=== PATIENT | female | born 1995 | race Two or more races ===

== ENCOUNTER 2017-01-22 12:25 | Emergency (ER) | payer OTHER ==
[2017-01-22 12:45] VITALS: TEMP 98.3; BMI 32.1
[2017-01-22] MEDS ORDERED: LORATADINE 10 MG TABLET PO ONE (15:15)
[2017-01-22] MEDS ORDERED: ALBUTEROL SO4 0.083% IH SOL 2.5 MG/3 ML VIAL.NEB. NEB ONE ×3 (15:15→15:45)
[2017-01-22] MEDS ORDERED: ACETAMINOPHEN 325 MG TABLET (FP) PO ONE (15:16)
--- NOTE | 2017-01-22 15:28 | PDOC ---
History of Present Illness - History of Present Illness Initial Comments: 01/22/17 15:46 Patient is a 22 year old female (18 weeks) with significant medical hx of seasonal allergies who is presenting to the ED with three days of chest tightness and congestion. The patient reports shes been having an exacerbation of her seasonal allergies and that shes had to use her albuterol pump for the past several days. Patient endorses some chest tightness, congestion and wheezing that worsens when shes outside. The patient also complains of difficulty sleeping the past three nights. Denies fevers, chills, cough, shortness of breath, weakness, lightheadedness, vaginal bleeding or discharge. <Suki Covington - Last Filed: 01/22/17 15:46> - General History Source: Patient Exam Limitations: No Limitations <Wiley Almanzar - Last Filed: 01/22/17 16:39> - General Chief Complaint: Respiratory Stated Complaint: COLD, SOB (18 WKS ) Time Seen by Provider: 01/22/17 15:07 Past History <Suki Covington - Last Filed: 01/22/17 15:46> - Past Medical History Asthma: Yes Thyroid Disease: Yes (HYPO) Other medical history: ECZEMA - Immunization History Immunization Up to Date: Yes - Psycho/Social/Smoking Cessation Hx Anxiety: No Suicidal Ideation: No Smoking History: Never smoked Have you smoked in the past 12 months: No Number of Cigarettes Smoked Daily: 0 Cigars Per Day: 0 Hx Alcohol Use: No Drug/Substance Use Hx: No Substance Use Type: None <Wiley Almanzar - Last Filed: 01/22/17 16:39> - Past Medical History Allergies/Adverse Reactions: Allergies Allergy/AdvReac Type Severity Reaction Status Date / Time [place] And Derivatives Allergy Verified 01/22/17 12:45 peanut Allergy Verified 01/22/17 12:45 KETCHUP Allergy Uncoded 01/22/17 12:45 Home Medications: Ambulatory Orders Acetaminophen [Tylenol] 650 mg PO Q4H PRN #20 tablet 01/22/17 Albuterol Sulfate Inhaler - [Ventolin HFA Inhaler -] 1 - 2 inh PO Q4H PRN #1 inhaler 01/22/17 Diphenhydramine HCl [Benadryl -] 25 mg PO Q6H PRN #20 capsule 01/22/17 Loratadine [Claritin] 10 mg PO DAILY PRN #10 tablet 01/22/17 Review of Systems - Review of Systems Comments:: 01/22/17 15:47 GENERAL/CONSTITUTIONAL: Difficulty sleeping. No fever or chills. No weakness. HEAD, EYES, EARS, NOSE AND THROAT: Congestion. No change in vision. No ear pain or discharge. No sore throat. CARDIOVASCULAR: Chest tightness. No shortness of breath. RESPIRATORY: Wheezing. No cough, or hemoptysis. GASTROINTESTINAL: No nausea, vomiting, diarrhea or constipation. GENITOURINARY: No dysuria, frequency, or change in urination. MUSCULOSKELETAL: No joint or muscle swelling or pain. No neck or back pain. SKIN: No rash NEUROLOGIC: No headache, vertigo, loss of consciousness, or change in strength/ sensation. <Suki Covington - Last Filed: 01/22/17 15:46> *Physical Exam - Vital Signs Last Vital Signs Temp Pulse Resp BP Pulse Ox 98.3 F 113 H 18 128/68 93 L 01/22/17 12:42 01/22/17 12:42 01/22/17 12:42 01/22/17 12:42 01/22/17 12:42 - Physical Exam Comments: 01/22/17 15:48 GENERAL: Awake, alert, and fully oriented, in no acute distress HEAD: No signs of trauma EYES: PERRLA, EOMI, sclera anicteric, conjunctiva clear ENT: Auricles normal inspection, hearing grossly normal, nares patent, oropharynx clear without exudates. Moist mucosa NECK: Normal ROM, supple, no lymphadenopathy, JVD, or masses LUNGS: Breath sounds equal, clear to auscultation bilaterally. No wheezes, and no crackles HEART: Regular rate and rhythm, normal S1 and S2, no murmurs, rubs or gallops ABDOMEN: Soft, nontender, normoactive bowel sounds. No guarding, no rebound. No masses EXTREMITIES: Normal range of motion, no edema. No clubbing or cyanosis. No cords, erythema, or tenderness NEUROLOGICAL: Cranial nerves II through XII grossly intact. Normal speech, normal gait SKIN: Warm, Dry, normal turgor, no rashes or lesions noted. ENDOCRINE: No increased thirst. No abnormal weight change. HEMATOLOGIC/LYMPHATIC: No anemia, easy bleeding, or history of blood clots. ALLERGIC/IMMUNOLOGIC: No hives or skin allergy. <Suki Covington - Last Filed: 01/22/17 15:46> - Vital Signs Last Vital Signs Temp Pulse Resp BP Pulse Ox 98.3 F 113 H 18 128/68 93 L 01/22/17 12:42 01/22/17 12:42 01/22/17 12:42 01/22/17 12:42 01/22/17 12:42 <Wiley Almanzar - Last Filed: 01/22/17 16:39> Medical Decision Making - Medical Decision Making 01/22/17 16:29 A portion of this note was documented by scribe services under my direction. I have reviewed the details of the note, within reason, and agree with the documentation with the following case summary and management plan written by me. Patient treated in the ED. Nursing notes are reviewed and incorporated into the medical decision-making. Vital signs reviewed. Peripheral IV access obtained by the nurse, laboratory studies are drawn and sent, reviewed and interpreted by myself. Vital Signs Temp Pulse Resp BP Pulse Ox 98.3 F 113 H 18 128/68 93 L 01/22/17 12:42 01/22/17 12:42 01/22/17 12:42 01/22/17 12:42 01/22/17 12:42 22-year-old female with past medical history of hypothyroidism, asthma, approximately 18 weeks presents with ALLERGIES. Last several days, the patient has been having seasonal ALLERGIES and wheezing. She's been using her albuterol pump with some relief. Of her, the symptoms are persistent and the patient was not sure what to take to her and came to the ED for further evaluation. The patient denies any abdominal pain or vaginal bleeding. The patient is having seasonal ALLERGIES. Albuterol was given with improvement of symptoms. Will give Claritin as well. At this time, we have decided against steroids. Return precautions given. Patient is ambulatory without difficulty breathing. I discussed the physical exam findings, ancillary test results and final diagnoses with the patient. I answered all of the patient's questions. The patient was satisfied with the care received and felt comfortable with the discharge plan and treatment plan. The patient will call their primary care physician within 24 hours to arrange follow-up and will return to the Emergency Department with any new, persistant or worsening symptoms. <Wiley Almanzar - Last Filed: 01/22/17 16:39> *DC/Admit/Observation/Transfer - Attestations Scribe Attestion: 01/22/17 15:49 Documentation prepared by Suki Covington, acting as medical billing coordinator for Wiley Almanzar MD. <Suki Covington - Last Filed: 01/22/17 15:46> - Discharge Dispostion Admit: No <Wiley Almanzar - Last Filed: 01/22/17 16:39> Diagnosis at time of Disposition: Seasonal allergies Qualifiers: Allergic rhinitis trigger: pollen Qualified Code(s): J30.1 - Allergic rhinitis due to pollen - Discharge Dispostion Disposition: HOME Condition at time of disposition: Improved - Prescriptions Prescriptions: Diphenhydramine HCl [Benadryl -] 25 mg PO Q6H PRN #20 capsule PRN Reason: Allergies Loratadine [Claritin] 10 mg PO DAILY PRN #10 tablet PRN Reason: Allergies Acetaminophen [Tylenol] 650 mg PO Q4H PRN #20 tablet PRN Reason: Pain Albuterol Sulfate Inhaler - [Ventolin HFA Inhaler -] 1 - 2 inh PO Q4H PRN #1 inhaler PRN Reason: Wheezing - Referrals Referrals: Lewis Jade [Primary Care Provider] - - Patient Instructions Printed Discharge Instructions: Allergic Rhinitis, Allergies, Respiratory ( Alternative Therapy) Additional Instructions: Please use the medications as needed for symptom control. It will take several days before your symptoms improve. - Post Discharge Activity Work/School Note: Back to Work
[2017-01-22] MEDS ORDERED: ACETAMINOPHEN 325 MG TABLET (FP) ONE (15:45)
[2017-01-22] MEDS ORDERED: LORATADINE 10 MG TABLET ONE (15:45)
[2017-01-22 17:04] VITALS: BP 118/64; PULSE 98
== END 2017-01-22 17:03 | disposition home or self-care (01) ==
LOC: JER 12:25
PROC: 3E0F7GC Introduction of Other Therapeutic Substance into Respiratory Tract, Via Natural or Artificial Opening (ICD-10-PCS; principal; 2017-01-22)
DX: O26.892 Other specified pregnancy related conditions, second trimester (principal); Z3A.18 18 weeks gestation of pregnancy; J30.1 Allergic rhinitis due to pollen
CPT/HCPCS: 94640; 99281-25

== ENCOUNTER 2017-05-26 17:05 | Inpatient (IN) | payer OTHER ==
[2017-05-26] MEDS ORDERED: DINOPROSTONE 10 MG VAGINAL SUPPOSITORY VG ONE (18:48)
[2017-05-26] MEDS ORDERED: BETAMET ACET/BETAMET NA PH 30 MG/5 ML VIAL IM ONE (18:49)
[2017-05-26 18:50] VITALS: BMI 34.6
[2017-05-26] MEDS: LACTATED RINGERS SOLUTION 1,000 ML IV SCH (19:30)
[2017-05-26 19:35] LABS: BASOPHIL 0.2 % (0-2.0); MCH 29.5 pg (25.7-33.7); MCHC 33.9 g/dl (32.0-36.0); MEAN PLT VOLUME 10.1 fl (7.5-11.1); NEUTROPHILS 72.5 % (42.8-82.8); PLATELET COUNT 191 K/MM3 (134-434); RDW 13.1 % (11.6-15.6); WHITE BLOOD COUNT 12.4 K/mm3 (4.0-10.0)
[2017-05-26 19:42] LABS: ACTIVATED PTT 26.4 SECONDS (26.9-34.4)
[2017-05-26] MEDS ORDERED: TUBERCULIN PPD 5 TU/0.1ML SYRINGE (IN PATIENT USE ONLY) ID ONE (19:45)
[2017-05-26 20:09] LABS: ANION GAP 10 (8-16); CO2 21 mmol/L (21-32); CREATININE 0.4 mg/dL (0.55-1.02); GLUCOSE,RANDOM 83 mg/dL (74-106)
--- NOTE | 2017-05-26 21:38 | HP ---
Past Medical History - Admission History of Present Illness: 22 yo @ 35 5/7 wks by first trimester ultrasound, EDC 06/12/2017 complicated by: 1. Hypohthyroid - on synthroid 50 mcg daily; Dr. Keita last TSH (05/19) 0.36 2. Asthma 3. CF carrier - referral given for FOB to get testing planned 02/12/17 4. Short cervix - noted at 30 wk ultrasound 5. 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 Suspected IUGR, s/p sequential screening (low risk) s/p diagnostic amniocentesis with normal karyotype (46,XX) 05/26/17 - 2090 (4 %) 05/12/17 - 1848 (7 %) 04/21/17 - 1364 (8 %) 03/24/17 - 844 (10 %) 03/01/17 - 531 (19 %) 02/17/17 - 377 (10 %) 7. Hx/o travel to region with [place] travel advisory at time of conception, Negative testing Patient was seen today for growth monitoring for suspected IUGR. She was noted to have an EFW of 4%, normal Umbilical artery dopplers. Recommendation per MFM is for delivery. She reports movement, denies leakage of fluid, vaginal bleeding or contractions. History Source: Patient Limitations to Obtaining History: No Limitations - Past Medical History Cardiovascular: No: HTN Pulmonary: Yes: Asthma Gastrointestinal: Yes: GERD ...: 1 ...Para: 0 ...Term: 0 ...: 0 ...Spon : 0 ...Induced : 0 ...Multiple Gestation: 0 ...LMP: 09/05/16 ... Weeks Gestation by Dates: 37.4 ...EDC by Dates: 06/12/17 ...EDC by Sono: 06/25/17 Heme/Onc: Yes: Anemia - Past Surgical History Past Surgical History: Yes: None Hx Myomectomy: No Hx Transabdominal Cerclage: No - Smoking History Smoking history: Never smoked Have you smoked in the past 12 months: No Aproximately how many cigarettes per day: 0 - Alcohol/Substance Use Hx Alcohol Use: No History of Substance Use: reports: None - Social History History of Recent Travel: No Home Medications - Allergies Allergies/Adverse Reactions: Allergies Allergy/AdvReac Type Severity Reaction Status Date / Time [place] And Derivatives Allergy Mild Verified 05/26/17 18:58 peanut Allergy Unknown Verified 05/26/17 18:58 KETCH[place] Allergy Mild Uncoded 05/26/17 18:58 - Home Medications Home Medications: Ambulatory Orders Levothyroxine [Synthroid -] 50 mcg PO DAILY 04/29/17 [id number]/Iron Fumarate/FA/Dss [ 19 Tablet] 1 each PO DAILY 04/29/17 Family Disease History - Family Disease History Family History: Denies Review of Systems - Review of Systems Constitutional: reports: No Symptoms Neck: reports: No Symptoms Cardiovascular: reports: No Symptoms Gastrointestinal: reports: No Symptoms Genitourinary: reports: No Symptoms Breasts: reports: No Symptoms Reported Integumentary: reports: No Symptoms Neurological: reports: No Symptoms Endocrine: reports: No Symptoms Hematology/Lymphatic: reports: No Symptoms Psychiatric: reports: No Symptoms Physical Exam - Maternity Vital Signs: Vital Signs Temperature 97.8 F 05/26/17 17:05 Pulse Rate 93 H 05/26/17 17:05 Respiratory Rate 20 05/26/17 17:05 Blood Pressure 122/55 05/26/17 17:05 O2 Sat by Pulse Oximetry (%) Constitutional: Yes: Well Nourished, No Distress, Calm Neck: Yes: Supple Cardiovascular: Yes: Regular Rate and Rhythm Lungs: Clear to auscultation - Abdominal Exam/OB Number of Fetuses: Single Presentation: Vertex Contractions: No Category: I Accelerations: Non-Uniform Decelerations: None - Vaginal Exam/OB Vaginal Bleediing: No Dilatation (cm): 1 Effacement (%): 50 Amniotic Membrane Status: Intact Station: -3 - Physical Exam Psychiatric: Yes: Alert, Oriented - Labs Lab Results: CBC, BMP 05/26/17 18:40 05/26/17 18:40 PNL - B positive, antibody negative, RPR NR, HBsAg negative, Hep C negative; Varicella immune; Rubella immune, Hg Terrie AA; GBS negative, HIV negative, Hemorrhage Risk Assessment - Risk Factors Medium Risk Factors: Yes: None High Risk Factors: Yes: None Risk Score: 1 Risk Level: Medium Risk Assessment/Plan 22 yo @ 35 5/7 wks IUGR for IOL 1. Admit to L&D 2. Consents reviewed and signed. Reviewed risks of induction of labor including uterine tachysystole, heart rate changes, failure, need for emergent delivery. Patient expressed understanding and cervidil placed in posterior fornix 3. GBS negative 4. Will offer pain medication upon request 5. Will continue synthroid for hypothyroidism 6. Will continue expectant management
[2017-05-26 21:44] LABS: CALCIUM 8.8 mg/dL (8.5-10.1)
[2017-05-27] MEDS: LACTATED RINGERS SOLUTION 1,000 ML IV SCH (02:30)
[2017-05-27] MEDS: LEVOTHYROXINE NA 50 MCG TABLET (FP) PO SCH (06:40)
[2017-05-27] MEDS ORDERED: BUTORPHANOL TARTRATE 1 MG/ML VIAL IVPUSH ONE (09:59)
[2017-05-27] MEDS ORDERED: PROMETHAZINE HCL 25 MG/1 ML VIAL IVPUSH ONE ×2 (09:59→21:36)
[2017-05-27] MEDS ORDERED: BETAMET ACET/BETAMET NA PH 30 MG/5 ML VIAL IM ONE (09:59)
--- NOTE | 2017-05-27 10:37 | PN ---
Ante-Partal Exam - Subjective Subjective: Mild cramping s/p cervidil Vital Signs: Vital Signs Temperature 97.5 F L 05/27/17 08:00 Pulse Rate 69 05/27/17 09:36 Respiratory Rate 20 05/27/17 09:36 Blood Pressure 121/66 05/27/17 09:36 O2 Sat by Pulse Oximetry (%) Bleeding: No Headache: No Visual changes: No Right upper quadrant pain: No - Contractions Contractions: Yes Regularity: Irregular Intensity: Mild Monitor Mode: External - Exam during Labor Heart Rate: 140 Variability: Moderate Category: I Monitor Accelerations: Present Monitor Decelerations: None Exam: Vaginal Dilatation (cm): 1 Effacement (%): 50 Amniotic Membrane Status: Intact Presentation: Vertex Station: -3 - Intrapartum Hemorrhage Risk Medium Risk Factors: None High Risk Factors: None Risk Score: 0 Risk Level: Low Risk - Assessment/Plan Assessment/Plan: 22 yo IOL IUGR 35 wk 1. Will start pitocin per protocol 2. GBS negative, no need for antibiotic prophylaxis 3. Category I FHT 4. Will offer IV medication for pain control 5. Will continue expectant management
[2017-05-27] MEDS: OXYTOCIN 15 UNITS/ LR 250 ML 250 ML IVPB SCH (10:40)
[2017-05-27] MEDS ORDERED: OXYTOCIN 15 UNITS/ LR 250 ML 250 ML IVPB SCH (11:28)
--- NOTE | 2017-05-27 17:43 | PN ---
Progress Note (short form) - Note Progress Note: cx 1 cm 80 vx -3 mi, fhr cat 1, contraction q 3 min
[2017-05-27] MEDS ORDERED: BUTORPHANOL TARTRATE 1 MG/ML VIAL IVPUSH PRN (21:36)
[2017-05-28] MEDS ORDERED: AMPICILLIN 2 GM/100 ML BAG (PRE-DOCKED) IVPB ONE (03:00)
--- NOTE | 2017-05-28 03:57 | PN ---
Progress Note (short form) - Note Progress Note: had SROM at am , clear fluid , cx 3 cm 80 vx -2 fhr cat 1, pt moving a lot with pain and contraction, scalp electrode applied
[2017-05-28] MEDS ORDERED: ELECTROLYTE-148 SOLN 500 ML IV ONE (04:00)
[2017-05-28] MEDS ORDERED: ELECTROLYTE-148 SOLN 1,000 ML IV SCH (04:00)
[2017-05-28] MEDS: FENTANYL/BUPIVACAINE/NS/PF - PCEA - 50 ML DISP.SYRIN EP SCH (05:00)
[2017-05-28] MEDS: AMPICILLIN (PRE-DOCKED) 1 GM/100 ML BAG IVPB SCH ×2 (06:49→10:15)
--- NOTE | 2017-05-28 09:02 | PN ---
Progress Note (short form) - Note Progress Note: cx 8 cm, 100 vx 0 . mr, clear. fhr cat 2 wirh variable decel with contraction, good BTBV . good recovery , plan LT side o2 , cont monitor heart
[2017-05-28] MEDS ORDERED: LEVOTHYROXINE NA 50 MCG TABLET (FP) PO SCH (10:00)
[2017-05-28] MEDS: OXYTOCIN 15 UNITS/ LR 250 ML 250 ML IVPB SCH (11:16)
[2017-05-28] MEDS ORDERED: BENZOCAINE 28 GM HEMORRHOIDAL OINTMENT TP PRN (11:26)
[2017-05-28] MEDS ORDERED: METHYLERGONOVINE MALEATE 0.2 MG/1 ML AMP IM PRN (11:26)
[2017-05-28] MEDS ORDERED: oxyCODONE HCL 5 MG TABLET PO PRN (11:26)
[2017-05-28] MEDS ORDERED: BENZOCAINE 20% 57 GM BOTTLE TP PRN (11:26)
[2017-05-28] MEDS ORDERED: BISACODYL 10 MG SUPP.RECT RC PRN (11:26)
[2017-05-28] MEDS ORDERED: WITCH HAZEL 50% (TUCKS) 40 PAD/JAR PAD TP PRN (11:26)
[2017-05-28] MEDS ORDERED: D5W-LR W/ 20 UNITS OXYTOCIN 1,000 ML IV SCH (11:30)
[2017-05-28] MEDS: LEVOTHYROXINE NA 50 MCG TABLET (FP) PO SCH (11:30)
[2017-05-28 11:49] LABS: VENOUS BLOOD GAS HCO3 23.1 meq/L (19-25); VENOUS PH 7.33 (7.32-7.42)
[2017-05-28 11:51] LABS: ARTERIAL BLD GAS O2 SATURATION 35.7 % (90-98.9); ARTERIAL BLOOD GAS BASE EXCESS -3.8 meq/l (-2-2); ARTERIAL BLOOD GAS HCO3 23.7 meq/L (22-26); ARTERIAL BLOOD GAS pH 7.27 (7.35-7.45)
[2017-05-28 11:52] LABS: LPM/O2% 21% RA; PT. ON O2? NO; TYPE OF O2 ARTERIAL CORD BLOOD
[2017-05-28 11:53] LABS: ARTERIAL BLOOD GAS PO2 20.1 mmHg (80-100)
[2017-05-28] MEDS: FERROUS SO4 325 MG TABLET (FP) PO SCH (22:07)
[2017-05-29] MEDS: IBUPROFEN 600 MG TABLET (FP) PO PRN (01:49)
[2017-05-29] MEDS: ACETAMINOPHEN 325 MG TABLET (FP) PO PRN ×2 (01:50→21:37)
[2017-05-29] MEDS: LEVOTHYROXINE NA 50 MCG TABLET (FP) PO SCH (06:55)
[2017-05-29 07:59] LABS: BASOPHIL 0.2 % (0-2.0); EOSINOPHIL 0.5 % (0-4.5); MCH 29.2 pg (25.7-33.7); MCHC 33.7 g/dl (32.0-36.0); MEAN CELL VOLUME 86.5 fl (80-96); MEAN PLT VOLUME 10.1 fl (7.5-11.1); NEUTROPHILS 74.6 % (42.8-82.8); PLATELET COUNT 172 K/MM3 (134-434); RDW 13.6 % (11.6-15.6); WHITE BLOOD COUNT 15.2 K/mm3 (4.0-10.0)
[2017-05-29] MEDS: FERROUS SO4 325 MG TABLET (FP) PO SCH ×2 (09:48→21:37)
[2017-05-29] MEDS: PRENATAL VITAMINS W/ FOLIC ACID TABLET (FP) PO SCH (09:48)
[2017-05-29] MEDS: AMPICILLIN (PRE-DOCKED) 1 GM/100 ML BAG IVPB SCH (20:32)
[2017-05-29] MEDS: FENTANYL/BUPIVACAINE/NS/PF - PCEA - 50 ML DISP.SYRIN EP SCH (20:33)
[2017-05-29] MEDS ORDERED: SENNOSIDES/DOCUSATE COMBO (SENNA PLUS) TABLET (UD) PO PRN (22:00)
--- NOTE | 2017-05-29 22:01 | PN ---
Post Progress Note - Subjective Subjective: No complaints. Feels well. Post Day: 1 Type of Delivery: Vital Signs: Vital Signs Temperature 97.8 F 05/29/17 10:00 Pulse Rate 72 05/29/17 10:00 Respiratory Rate 18 05/29/17 10:00 Blood Pressure 117/72 05/29/17 10:00 O2 Sat by Pulse Oximetry (%) 99 05/28/17 12:15 Breast Exam: Yes: Soft Uterus: Yes: Fundus Firm, Fundus below umbilicus, Non-tender Abdomen/GI: Yes: Abdomen soft, Passing flatus, Tolerating PO Lochia: Yes: Rubra Lochia, amount: Small Extremities: Yes: Calves non-tender, Edema (trace bilaterally) Perineum: Yes: Intact Activity: Ambulating - Labs Labs: CBC WBC 15.2 K/mm3 (4.0-10.0) H 05/29/17 06:00 RBC 4.22 M/mm3 (3.60-5.2) 05/29/17 06:00 Hgb 12.3 GM/dL (10.7-15.3) 05/29/17 06:00 Hct 36.5 % (32.4-45.2) 05/29/17 06:00 MCV 86.5 fl (80-96) 05/29/17 06:00 MCH 29.2 pg (25.7-33.7) 05/29/17 06:00 MCHC 33.7 g/dl (32.0-36.0) 05/29/17 06:00 RDW 13.6 % (11.6-15.6) 05/29/17 06:00 Plt Count 172 K/MM3 (134-434) 05/29/17 06:00 MPV 10.1 fl (7.5-11.1) 05/29/17 06:00 Neutrophils % 74.6 % (42.8-82.8) 05/29/17 06:00 Lymphocytes % 16.1 % (8-40) 05/29/17 06:00 Monocytes % 8.6 % (3.8-10.2) 05/29/17 06:00 Eosinophils % 0.5 % (0-4.5) D 05/29/17 06:00 Basophils % 0.2 % (0-2.0) 05/29/17 06:00 Assessment/Plan 22yo P1 s/p , doing well stable, afebrile. care instructions reviewed. Continue routine care. Ambulation encouraged Discharge instruction reviewed.
[2017-05-30] MEDS: LEVOTHYROXINE NA 50 MCG TABLET (FP) PO SCH (06:16)
[2017-05-30] MEDS: FENTANYL/BUPIVACAINE/NS/PF - PCEA - 50 ML DISP.SYRIN EP SCH (06:49)
[2017-05-30 07:57] VITALS: BP 127/74; PULSE 65; TEMP 98
[2017-05-30] MEDS: FERROUS SO4 325 MG TABLET (FP) PO SCH (09:48)
[2017-05-30] MEDS: PRENATAL VITAMINS W/ FOLIC ACID TABLET (FP) PO SCH (09:48)
[2017-05-30] MEDS: ACETAMINOPHEN 325 MG TABLET (FP) PO PRN (09:48)
[2017-05-30] MEDS: IBUPROFEN 600 MG TABLET (FP) PO PRN (09:49)
--- NOTE | 2017-05-30 11:00 | PN ---
Post Progress Note - Subjective Subjective: No complaints Post Day: 2 Type of Delivery: Vital Signs: Vital Signs Temperature 98 F 05/30/17 07:55 Pulse Rate 65 05/30/17 07:55 Respiratory Rate 18 05/30/17 07:55 Blood Pressure 127/74 05/30/17 07:55 O2 Sat by Pulse Oximetry (%) 99 05/28/17 12:15 Breast Exam: Yes: Soft Uterus: Yes: Fundus Firm, Fundus below umbilicus, Non-tender Abdomen/GI: Yes: Abdomen soft, Passing flatus, Tolerating PO Lochia: Yes: Rubra Lochia, amount: Small Extremities: Yes: Calves non-tender Perineum: Yes: Intact Activity: Ambulating - Labs Labs: CBC WBC 15.2 K/mm3 (4.0-10.0) H 05/29/17 06:00 RBC 4.22 M/mm3 (3.60-5.2) 05/29/17 06:00 Hgb 12.3 GM/dL (10.7-15.3) 05/29/17 06:00 Hct 36.5 % (32.4-45.2) 05/29/17 06:00 MCV 86.5 fl (80-96) 05/29/17 06:00 MCH 29.2 pg (25.7-33.7) 05/29/17 06:00 MCHC 33.7 g/dl (32.0-36.0) 05/29/17 06:00 RDW 13.6 % (11.6-15.6) 05/29/17 06:00 Plt Count 172 K/MM3 (134-434) 05/29/17 06:00 MPV 10.1 fl (7.5-11.1) 05/29/17 06:00 Neutrophils % 74.6 % (42.8-82.8) 05/29/17 06:00 Lymphocytes % 16.1 % (8-40) 05/29/17 06:00 Monocytes % 8.6 % (3.8-10.2) 05/29/17 06:00 Eosinophils % 0.5 % (0-4.5) D 05/29/17 06:00 Basophils % 0.2 % (0-2.0) 05/29/17 06:00 Assessment/Plan 22yo P1 s/p , doing well stable, afebrile. care instructions reviewed. Continue routine care. Ambulation encouraged Discharge instruction reviewed.
--- NOTE | 2017-05-31 09:43 | DS ---
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: Vital Signs Temperature 98 F 05/30/17 07:55 Pulse Rate 65 05/30/17 07:55 Respiratory Rate 18 05/30/17 07:55 Blood Pressure 127/74 05/30/17 07:55 O2 Sat by Pulse Oximetry (%) 99 05/28/17 12:15 Labs: CBC, BMP 05/29/17 06:00 05/26/17 18:40 Delivery - Delivery Type of Anesthesia: Epidural Episiotomy/Laceration: None EBL (cc): 300 Delivery, Single - Stages of Labor Date 1st Stage Initiatied: 05/27/17 Time 1st Stage Initiated: 23:00 Date 2nd Stage Initiated: 05/28/17 Time 2nd Stage Initiated: 11:00 Date of Delivery: 05/28/17 Time of Delivery: 11:16 Time Placenta Delivered: 11:18 - Condition of [employer]/Call Out Clerk Present: Yes Name: Sandi Griffiths Gender: Female Weight: 4 lb 14 oz Position: Left, OA Total Hours ROM (Hrs/Mins): 8hrs/18mins - 1 Minute Total Score: 9 5 Minutes Total Score: 9 - [place] Feeding Plan Initial Plan: Exclusive throughout hospitalization Discharge Summary Reason For Visit: INDUCTION OF LABOR Procedures: Principal: vaginal delivery Other Procedures: induction of labor Hospital Course: Patient admitted at 35 wks for IOL for suspected IUGR. She underwent induction with cervidil. She then underwent pitocin augmentation of labor. She proceeded with vaginal delivery. She remained afebrile, vital signs stable for discharge home PPD #2 Condition: Improved - Instructions Diet, Activity, Other Instructions: Physical activity Resume your normal everyday activity as tolerated no heavy lifting or exercise until seen by your surgeon. You may walk unlimited ron of and climb stairs. You may resume driving the car when you feel safe and comfortable behind the wheel. No sexual activity as instructed. Wound care If you have a bandage, leave it on, and keep dry for 48-72 hours. After that time discard the outer bandage. If they are tapes on the skin under the out of bandage leave them in place. They will peel off in the next 7 to 10 days. Do Not Peel them off. You may shower the day after surgery. If there are tapes present on the skin, you may shower over them. Diet There are no dietary restrictions. Eat healthy, high-fiber foods. Drink 6 to 8 glasses of liquid each day. This will assist in keeping your bowels are regular. Pain management You may take Tylenol or acetaminophen or Ibuprofen (for example, Motrin, Advil etc.) from my pain prescription medication is ordered should be taken as prescribed for moderate to severe pain. Call MD for any of the following: Severe pain not relieved by medication Fever of 101 or higher Excessive bleeding or drainage on dressing Inability to urinate Referrals: Raj Mancia MD [Staff Physician] - Disposition: HOME - Home Medications Comprehensive Discharge Medication List: Ambulatory Orders Levothyroxine [Synthroid -] 50 mcg PO DAILY 04/29/17 [id number]/Iron Fumarate/FA/Dss [ 19 Tablet] 1 each PO DAILY 04/29/17
== END 2017-05-30 18:45 | disposition home or self-care (01) | DRG 560 ==
LOC: JLDR 17:05 → J3W 05-28 15:45
PROVIDERS: ADMIT Obstetrics & Gynecology; ATTEND Obstetrics & Gynecology
PROC: 3E0P7GC Introduction of Other Therapeutic Substance into Female Reproductive, Via Natural or Artificial Opening (ICD-10-PCS; 2017-05-26)
PROC: 10E0XZZ Delivery of Products of Conception, External Approach (ICD-10-PCS; principal; 2017-05-28)
DX: O60.14X0 Preterm labor third trimester with preterm delivery third trimester, not applicable or unspecified (principal); O99.284 Endocrine, nutritional and metabolic diseases complicating childbirth; E03.9 Hypothyroidism, unspecified; O26.873 Cervical shortening, third trimester; O36.5930 Maternal care for other known or suspected poor fetal growth, third trimester, not applicable or unspecified; Z3A.35 35 weeks gestation of pregnancy; Z37.0 Single live birth
CPT/HCPCS: 36415; 36600; 59409; 80048; 82803; 85025; 85610; 85730; 86593; 86850; 86900; 86901; 88307-TC; 96372

== ENCOUNTER 2017-07-21 03:20 | Emergency (ER) | payer OTHER ==
[2017-07-21] MEDS ORDERED: DICYCLOMINE HCL 20 MG TABLET PO ONE (04:40)
[2017-07-21] MEDS ORDERED: MAG HYDROX/AL HYDROX/SIMETH 30 ML UNIT-DOSE CUP PO ONE (04:40)
[2017-07-21] MEDS ORDERED: ONDANSETRON *ODT* 4 MG TABLET SL ONE (04:40)
[2017-07-21 04:41] VITALS: PULSE 101; TEMP 97.5; BMI 30.1
[2017-07-21] MEDS ORDERED: ONDANSETRON *ODT* 4 MG TABLET ONE (04:46)
[2017-07-21] MEDS ORDERED: DICYCLOMINE HCL 10 MG CAPSULE ONE (04:46)
[2017-07-21] MEDS ORDERED: MAG HYDROX/AL HYDROX/SIMETH 30 ML UNIT-DOSE CUP ONE (04:47)
[2017-07-21] MEDS ORDERED: FAMOTIDINE 20 MG/50 ML IVPB 50 ML IVPB ONE (04:53)
--- NOTE | 2017-07-21 04:53 | PDOC ---
History of Present Illness - General Chief Complaint: Nausea/Vomiting Stated Complaint: N/V/D/ Time Seen by Provider: 07/21/17 04:25 History Source: Patient - History of Present Illness Initial Comments: 07/21/17 05:41 22-year-old female complaining of nausea vomiting diarrhea and generalized abdominal pain since last night. Patient reports eating steak from [employer] last night. Denies fever chills headache chest pain, urinary symptoms at this time. Past History - Past Medical History Allergies/Adverse Reactions: Allergies Allergy/AdvReac Type Severity Reaction Status Date / Time [place] And Derivatives Allergy Mild Verified 07/21/17 04:40 peanut Allergy Unknown Verified 07/21/17 04:40 [place]ET[place] Allergy Mild Uncoded 07/21/17 04:40 Home Medications: Ambulatory Orders Levothyroxine [Synthroid -] 50 mcg PO DAILY 04/29/17 Asthma: No Cancer: No Cardiac Disorders: No Diabetes: No HTN: No Seizures: No Thyroid Disease: No - Immunization History Immunization Up to Date: Yes - Suicide/Smoking/Psychosocial Hx Smoking History: Never smoked Have you smoked in the past 12 months: No Number of Cigarettes Smoked Daily: 0 Cigars Per Day: 0 Hx Alcohol Use: No Drug/Substance Use Hx: No Substance Use Type: None Hx Substance Use Treatment: No Review of Systems - Review of Systems Able to Perform ROS?: Yes Is the patient limited K[place]z proficient: No Constitutional: No: Symptoms Reported, See HPI, Chills, Diaphoresis, Fever, Loss of Appetite, Malaise, Night Sweats, Weakness, Weight Stable, Unintentional Wgt. Loss, Unexplained wgt Loss, Other Respiratory: No: Symptoms reported, See HPI, Cough, Orthopnea, Shortness of Breath, SOB with Exertion, SOB at Rest, Stridor, Wheezing, Productive cough, Hemoptysis, Other Cardiac (ROS): No: Symptoms Reported, See HPI, Chest Pain, Edema, Irregular Heart Rate, Lightheadedness, Palpitations, Syncope, Chest Tightness, Other ABD/GI: Yes: Diarrhea, Nausea, Vomiting, Abdominal cramping. No: Symptoms Reported, See HPI, Abdominal Distended, Abd. Pain w/ defecation, Blood Streaked Bowels, Constipated, Difficulty Swallowing, Poor Appetite, Poor Fluid Intake, Rectal Bleeding, Indigestion, Tarry Stools, Other *Physical Exam - Vital Signs 07/21/17 05:42 Last Vital Signs Temp Pulse Resp BP Pulse Ox 97.5 F L 101 H 18 135/73 100 07/21/17 04:34 07/21/17 04:34 07/21/17 04:34 07/21/17 05:31 07/21/17 04:34 - Physical Exam General Appearance: Yes: Appropriately Dressed Respiratory/Chest: positive: Lungs Clear, Normal Breath Sounds Cardiovascular: positive: S1, S2, Tachycardia Gastrointestinal/Abdominal: positive: Tender (generalized tenderness), Soft, Increased Bowel Sounds Extremity: positive: Normal Capillary Refill, Normal Inspection, Normal Range of Motion Integumentary: positive: Normal Color, Dry, Warm Neurologic: positive: Fully Oriented, Alert, Normal Mood/Affect ED Treatment Course - LABORATORY CBC & Chemistry Diagram: 07/21/17 05:14 07/21/17 05:14 Progress Note - Progress Note Progress Note: A: gastroenteritis P: cbc cmp serum IVF zofran pepcid Medical Decision Making - Medical Decision Making 07/21/17 04:55 unable to tolerate PO meds. will start give IVF, zofran/ pepcid 07/21/17 06:45 TOLERATED po RJ MARS. PATIENT REPORTS FEELING BETTER. NO ABDOMINAL PAIN. WILL D/C HOME WITH STRICT HAND WASHING AND BRAT DIET. *DC/Admit/Observation/Transfer Diagnosis at time of Disposition: Gastroenteritis - Discharge Dispostion Disposition: HOME Condition at time of disposition: Fair - Referrals Referrals: Lewis Jade [Primary Care Provider] - - Patient Instructions Printed Discharge Instructions: DI for Vomiting -- Adult Additional Instructions: DRINK PLENTY OF FLUIDS START A BRAT (BANANAS, RICE, APPLES, TOAST) DIET. STRICT HANDWASHING AT HOME. FOLLOW UP WITH YOUR DOCTOR SOON POSSIBLE. RETURN TO THE ED IF SYMPTOMS WORSEN
[2017-07-21] MEDS ORDERED: ONDANSETRON 4 MG/2 ML VIAL ONE (04:55)
[2017-07-21] MEDS ORDERED: ONDANSETRON 4 MG/2 ML VIAL IVPUSH ONE (05:00)
--- NOTE | 2017-07-21 05:04 | PDOC ---
*Physical Exam - Vital Signs Last Vital Signs Temp Pulse Resp BP Pulse Ox 97.5 F L 101 H 18 135/32 100 07/21/17 04:34 07/21/17 04:34 07/21/17 04:34 07/21/17 04:34 07/21/17 04:34 ED Treatment Course - Medications Given in the ED: ED Medications Discontinued Medications Generic Name Dose Route Start Last Admin Trade Name Freq PRN Reason Stop Dose Admin Al Hydroxide/Mg Hydroxide 30 ml 07/21/17 04:40 07/21/17 05:01 Mylanta Oral Suspension - PO 07/21/17 04:41 Not Given ONCE ONE Dicyclomine HCl 20 mg 07/21/17 04:40 07/21/17 05:00 Bentyl - PO 07/21/17 04:41 Not Given ONCE ONE Ondansetron HCl 4 mg 07/21/17 04:40 07/21/17 05:01 Zofran Odt - SL 07/21/17 04:41 Not Given ONCE ONE Medical Decision Making - Medical Decision Making 07/21/17 05:04 agree with care from BRENT Matson *DC/Admit/Observation/Transfer Diagnosis at time of Disposition: Gastroenteritis - Discharge Dispostion Condition at time of disposition: Fair - Referrals Referrals: Lewis Jade [Primary Care Provider] - - Patient Instructions - Post Discharge Activity
[2017-07-21] MEDS ORDERED: SODIUM CHLORIDE 1,000 ML IV STA ×2 (05:26→06:07)
[2017-07-21 05:27] LABS: BASOPHIL 0.2 % (0-2.0); EOSINOPHIL 0.6 % (0-4.5); MCH 28.7 pg (25.7-33.7); MCHC 33.6 g/dl (32.0-36.0); MEAN CELL VOLUME 85.4 fl (80-96); MEAN PLT VOLUME 9.6 fl (7.5-11.1); NEUTROPHILS 88.3 % (42.8-82.8); PLATELET COUNT 251 K/MM3 (134-434); RDW 13.8 % (11.6-15.6); WHITE BLOOD COUNT 15.6 K/mm3 (4.0-10.0)
[2017-07-21 05:29] LABS: URINE APPEARANCE SLCLOUDY; URINE BILIRUBIN NEGATIVE (NEGATIVE); URINE BLOOD NEGATIVE (NEGATIVE); URINE COLOR YELLOW; URINE GLUCOSE (UA) NEGATIVE (NEGATIVE); URINE KETONE TRACE (NEGATIVE); URINE NITRITE NEGATIVE (NEGATIVE); URINE PROTEIN NEGATIVE (NEGATIVE); URINE UROBILINOGEN NEGATIVE mg/dL (0.2-1.0)
[2017-07-21 05:52] LABS: ALK PHOS 98 U/L (45-117); ANION GAP 8 (8-16); BILIRUBIN,TOTAL 0.3 mg/dL (0.2-1.0); CALCIUM 8.5 mg/dL (8.5-10.1); CO2 25 mmol/L (21-32); CREATININE 0.7 mg/dL (0.55-1.02); GLUCOSE,RANDOM 88 mg/dL (74-106); SGOT/AST 25 U/L (15-37); SGPT/ALT 38 U/L (12-78); TOT PROT 7.6 g/dl (6.4-8.2)
[2017-07-21 07:01] VITALS: BP 110/70
[2017-07-21 09:01] LABS: URINE LEUK ESTERASE Negative (NEGATIVE)
== END 2017-07-21 07:09 | disposition home or self-care (01) ==
LOC: JER 03:20
PROC: 3E033GC Introduction of Other Therapeutic Substance into Peripheral Vein, Percutaneous Approach (ICD-10-PCS; principal; 2017-07-21)
PROC: 3E0337Z Introduction of Electrolytic and Water Balance Substance into Peripheral Vein, Percutaneous Approach (ICD-10-PCS; 2017-07-21)
DX: K52.9 Noninfective gastroenteritis and colitis, unspecified (principal)
CPT/HCPCS: 36415; 80053; 81003; 83690; 84703; 85025; 96361; 96374; 99283-25